=== PATIENT | male | born 1960 | race Caucasian/White ===

== ENCOUNTER → 2018-07-13 | Outpatient (CLI) | payer OTHER ==
[2018-07-13 11:37] LABS: HEMATOCRIT 43.3 % (37.9-51.0); HEMOGLOBIN 15.5 g/dL (13.5-17.0); MEAN CORPUSCULAR HEMOGLOBIN 33.2 pg (27.0-33.4); MEAN CORPUSCULAR HGB CONC 35.8 g/dL (32.0-36.0); MEAN CORPUSCULAR VOLUME 93 fl (80-97); PLATELET COUNT 231 10^3/uL (150-450); RED BLOOD COUNT 4.67 10^6/uL (4.35-5.55); RED CELL DISTRIBUTION WIDTH 13.7 % (11.5-14.0)
[2018-07-13 12:01] LABS: ANION GAP 9 (5-19); BLOOD UREA NITROGEN 12 mg/dL (7-20); CALCIUM 9.3 mg/dL (8.4-10.2); CARBON DIOXIDE 30 mmol/L (22-30); CHLORIDE 104 mmol/L (98-107); GLUCOSE 88 mg/dL (75-110); POTASSIUM 4.6 mmol/L (3.6-5.0)
== END ==
LOC: OD 10:41
PROVIDERS: ATTEND Surgery
DX: Z01.818 Encounter for other preprocedural examination (principal); K40.90 Unilateral inguinal hernia, without obstruction or gangrene, not specified as recurrent; R35.1 Nocturia; N40.1 Benign prostatic hyperplasia with lower urinary tract symptoms; R97.20 Elevated prostate specific antigen [PSA]; H69.82 Other specified disorders of Eustachian tube, left ear; H73.812 Atrophic flaccid tympanic membrane, left ear; E07.9 Disorder of thyroid, unspecified
CPT/HCPCS: 36415; 80048; 85027

== ENCOUNTER 2018-07-16 11:06 | Day surgery (SDC) | payer BC, OTHER ==
[~2018-07-16 11:06] MED LIST: CEFAZOLIN SODIUM 2 GM in DEXTROSE 5%-WATER 100 ML IV PRN; RINGERS SOLUTION,LACTATED 1,000 ML IV PRN
[2018-07-16] MEDS ORDERED: CEFAZOLIN 2 GM/D5W RTU 2 GM/50 ML RTUPB IV PRN (11:22)
[2018-07-16] MEDS ORDERED: BUPIVACAINE HCL 0.25 % INJ/PF (2.5 MG/1 ML) 30 ML VIAL ONE (11:41)
[2018-07-16] MEDS ORDERED: FENTANYL CITRATE INJ/PF 100 MCG/2 ML AMPUL ONE ×2 (12:09→14:15)
[2018-07-16] MEDS ORDERED: LIDOCAINE 2% INJ-PF (20 MG/ML) 10 ML AMPUL ONE (12:10)
[2018-07-16] MEDS ORDERED: PROPOFOL INJ 200 MG/20 ML VIAL IV ONE (12:10)
[2018-07-16] MEDS ORDERED: MIDAZOLAM 2 MG/2 ML INJ ONE (12:11)
[2018-07-16] MEDS ORDERED: ACETAMINOPHEN 1,000 MG/100 ML RTUPB IV ONE (12:11)
[2018-07-16] MEDS ORDERED: KETOROLAC TROMETHAMINE INJ/PF 30 MG/1 ML SDV ONE (12:11)
[2018-07-16] MEDS ORDERED: LIDOCAINE 1% INJ-PF (10 MG/ML) 30 ML SDV ONE (12:17)
--- NOTE | 2018-07-16 13:51 | Discharge Summary ---
Discharge Summary (SDC) - Discharge Final Diagnosis: left inguinal hernia. indirect Date of Surgery: 07/16/18 Discharge Date: 07/16/18 Condition: Stable Forms: [facility] Discharge Plan Treatment or Instructions: d/c home. diet as tolerated. activity: no lifting >10 lbs x 2 weeks. f/u with me in 2 weeks. Zenda 10/325 mg PO q6 hours PRN pain. ok to shower in 48 hrs. No tub baths x 2 weeks. Referrals: MARTHA RODRIGUEZ MD [ACTIVE STAFF] - Discharge Diet: As Tolerated Respiratory Treatments at Home: Deep Breathing/Coughing, Incentive Spirometer Discharge Activity: No Lifting Over 10 Pounds Home Care Assistance: None Needed Report the Following to Your Physician Immediately: Shortness of Breath, Nausea, Vomiting, Increase in Pain, Fever over 101 Degrees, Unusual Bleeding, Redness
--- NOTE | 2018-07-16 17:12 | Operative Report ---
Nonrecallable Operative Report DATE OF SURGERY: 07/16/18 PREOPERATIVE DIAGNOSIS: left inguinal hernia POSTOPERATIVE DIAGNOSIS: indirect left inguinal hernia OPERATION: open left inguinal hernia repair with mesh (plug and patch) SURGEON: MARTHA RODRIGUEZ ANESTHESIA: LMAC TISSUE REMOVED OR ALTERED: none COMPLICATIONS: none apparent ESTIMATED BLOOD LOSS: minimal PROCEDURE: implants: medium Bard plug and patch. Procedure in-detail: After informed consent was obtained, the patient was brought into the operating room and laid in the supine positioin. The area of the left groin was prepped and draped in a normal, sterile fashion. An incision was created in the left groin between the ASIS and pubic tubercle. Dissection was carried through the subcutaneous tissue using sharp and blunt means. The external oblique fascia was incised with a 15 blade scalpel. The incision was lengthened with scissors, through the external inguinal ring. The ilioinguinal nerve was identified and divided sharply. The cord was then elevated away from the inguinal floor. A kurt drain was placed behind the cord structures. The hernia sac was dissected free of the cord very carefully. The sac was returned to the abdominal cavity. A medium Bard plug and patch were then chosen to repair the defect. The plug was placed into the indirect inguinal hernia defect. It was sutured to the surrounding tissue using 0 Prolene suture in simple interrupted fashion. Next the hernia patch was laid over the floor of the inguinal canal. It was sutured to the pubic tubercle x2 with 0 Prolene suture. That same Prolene suture was then used to run circumferentially around the patch, suturing it to the abdominal wall. Superiorly it was sewn to the internal oblique aponeurosis, inferiorly it was sewn to Poupart's ligament. The cord was then brought through the keyhole. The keyhole was tightened just enough to admit the tip of a pinky finger. Next, the external oblique aponeurosis was closed over top of the repair. This was done using 3-0 Vicryl suture in simple running fashion. The subcutaneous tissue was then closed using 3-0 Vicryl suture in simple running fashion. The overlying skin was closed using 4-0 Vicryl Rapide suture in subcuticular fashion. A dressing was placed, and the procedure was concluded. All sponge, instrument, and needle counts were correct x2. Condition: Stable.
== END 2018-07-16 15:20 | disposition home or self-care (01) ==
LOC: SC 11:06
PROVIDERS: ATTEND Surgery
DX: K40.90 Unilateral inguinal hernia, without obstruction or gangrene, not specified as recurrent (principal); E07.9 Disorder of thyroid, unspecified; R97.20 Elevated prostate specific antigen [PSA]; R35.1 Nocturia; N40.1 Benign prostatic hyperplasia with lower urinary tract symptoms; Z79.899 Other long term (current) drug therapy
CPT/HCPCS: 49505; C1781; J2250; J3010; J3490 ×2; J1885; J2704; J0690; J0131; 830